=== PATIENT | female | born 1970 | race American Indian/Alaskan Native ===

== ENCOUNTER 2017-02-12 08:58 | Outpatient (CLI) | payer MEDICAID ==
--- NOTE | 2017-02-12 11:18 | Fluoroscopy Report ---
FLUORO GUIDED HSG INDICATION: Pelvic and perineal pain. ESSURE placed 10 years ago. COMPARISON: None similar. FINDINGS: Hysterosalpingogram performed with cervix cannulated using standard sterile precautions. Preliminary radiograph demonstrates bilateral Essure devices. Colonic stool, greatest in the right lower quadrant. Injection of 10 cc of Omnipaque-300 under fluoroscopy promptly opacifies the uterine cavity with approximately 2 cm filling defect centrally suspicious for a fibroid. No contrast within the fallopian tubes or free spillage into the peritoneal cavity. Bilateral Essure devices seen with the proximal tip in the cornu of the uterus on the right and at the junction of the cornu and the fallopian tube on the left. CONCLUSION: 1. Bilateral Essure devices without evidence of free intraperitoneal spillage, representing bilateral tubal occlusion, as described. Please correlate. 2. Few other findings, including possible uterine fibroid, as above. Thank you for the opportunity to participate in this patient's care.
== END 2017-02-12 08:59 | disposition home or self-care (01) ==
LOC: FLUORO 08:58
PROVIDERS: ATTEND Obstetrics & Gynecology
DX: R10.2 Pelvic and perineal pain (principal); Z98.51 Tubal ligation status; Z87.891 Personal history of nicotine dependence
CPT/HCPCS: 58340; 74740; Q9967

== ENCOUNTER 2017-05-28 10:45 | Inpatient (IN) | payer MEDICAID ==
[~2017-05-28 10:45] MED LIST: DIPRIVAN 10 MG/ML IV ONE; MARCAINE 0.5% INFILTRATI ONE; SUBLIMAZE ONE; XYLOCAINE MPF 2% ONE; ZEMURON IV ONE
--- NOTE | 2017-05-28 10:55 | Short Stay Summary ---
Short Stay Documentation Date of service: 05/28/17 Narrative H&P: Pt is a 46yo BF LMP 5 years ago spontaneously, presents for surgical removal of the Essure device which was placed 10 years ago. Pt complains of pelvic pain associated with the Essure device, and would like them removed. - History Principal diagnosis: Pelvic pain H&P: obtained from office Past Medical History: other (Neurotic /Anxiety/Depression disorder) Past Surgical History: Other (Ovarian cystectomy; Laparoscopy for ectopic ; Essure placement) Social history: no significant social history, - Allergies and Medications Current Medications: Allergies morphine Adverse Reaction (Verified 02/07/14 13:44) Itching Home Medications Medication Instructions Recorded Confirmed Last Taken Type Cyclobenzaprine [Flexeril 10 MG 10 mg PO TID PRN #20 tablet 05/01/15 Unknown Rx TAB] HYDROcodone/APAP 10-325 [[place] 1 each PO Q8HR PRN #20 tablet 05/01/15 Unknown Rx 10/325] Nitrofurantoin [place]/M-[place]ryst 100 mg PO Q12HR #10 capsule 05/01/15 Unknown Rx [Macrobid CAP] ALBUTEROL NEB's [Proventil] 2.5 mg IH PRN PRN 05/22/17 05/22/17 Unknown History Famotidine [Famotidine] 20 mg PO BID 05/22/17 05/22/17 Unknown History Ibuprofen [Motrin 800 MG tab] 800 mg PO PRN PRN 05/22/17 05/22/17 Unknown History PARoxetine [Paxil] 20 mg PO DAILY 05/22/17 05/22/17 Unknown History Trazodone HCl 150 mg PO DAILY 05/22/17 05/22/17 Unknown History Vit D3 & K/Berberine HCl/Hops 5,000 each PO 05/22/17 Unknown History [Ostera Tablet] cloNIDine [Catapres] 0.1 mg PO TID 05/22/17 05/22/17 Unknown History Active Medications Cefazolin Sodium (Ancef/Sterile Water 2 Gm/20 Ml) 2 gm in 20 mls @ 80 mls/hr IV PREOP NR PRN Reason: Protocol Lactated Ringer's (Lactated Ringers) 1,000 mls @ 125 mls/hr IV DIRECT VANESSA - Physical exam General appearance: no acute distress Integumentary: no rash HEENT: Atraumatic Lungs: Clear to auscultation Breasts: deferred Heart: Regular rate Gastrointestinal: normal Female Genitourinary: deferred Rectal Exam: deferred Extremities: No edema Neurological: Normal gait - Brief post op/procedure progress note Date of procedure: 05/28/17 Pre-op diagnosis: 1. Pelvic pain Post-op diagnosis: same (with Left ovarian cyst and pelvic adhesions) Procedure: 1. Laparoscopy 2. Hysteroscopy with removal of right Essure device. 3. Laparotomy 4. Left SalpingoOophorectomy 5. Lysis of pelvic adhesions Anesthesia: GETA Findings: An enlarged uterus with absent right fallopian tube and ovary. A large left ovarian cyst with suspicious flesh-like tissue that was sent for frozen section. Bowel adhesions to the left uterine sidewall and anterior abdominal wall. Hysteroscopy showed the Essure devices in the uterine cornu bilaterally, and an endometrial polyp. Surgeon: ALEXANDER FLORES Estimated blood loss: 50-100ml Pathology: list (Left fallopian tube and ovary; Essure device from right uterine cornu; Ovarian mass for frozen section) Specimen disposition: to lab Condition: stable - Hospital course Hospital course: Unremarkable. Pt tolerated the surgical procedure well, and by POD #2 she was tolerating a reg diet without nausea or vomiting, ambulating and voiding without difficulty. She was therefore discharged to home on POD #2 in stable condition. - Disposition Condition at discharge: Good Disposition: DC-01 TO HOME OR SELFCARE Short Stay Discharge Plan Activity: no restrictions Diet: regular Wound: open to air, keep clean and dry Follow up with: MILTON ALBERTS MD [Primary Care Provider] - 7 Days ALEXANDER FLORES MD [Staff Physician] - 7 Days Prescriptions: HYDROcodone/APAP 5-325 [[place] 5-325 mg TAB] 1 each PO Q6HR PRN #30 tablet PRN Reason: Pain, Moderate (4-6) Ibuprofen [Motrin] 800 mg PO Q8HR PRN #30 tablet PRN Reason: Moder Pain Unrelieved By [place]
[2017-05-28] MEDS ORDERED: ANCEF/STERILE WATER 2 GM/20 ML 2 GM/20 ML SYRINGE IV NR (11:00)
[2017-05-28] MEDS ORDERED: LACTATED RINGERS 1,000 ML IV SCH (11:00)
[2017-05-28] MEDS ORDERED: NACL BACTERIOSTATIC INFILTRATI ONE (11:35)
--- NOTE | 2017-05-28 12:18 | Anesthesia Consultation ---
Anesthesia Consult and Med Hx Date of service: 05/28/17 - Airway Anesthetic Teeth Evaluation: Good ROM Head & Neck: Adequate Mental/Hyoid Distance: Adequate Mallampati Class: Class II Intubation Access Assessment: Good - Pulmonary Exam CTA: Yes - Cardiac Exam Cardiac Exam: RRR - Pre-Operative Health Status ASA Pre-Surgery Classification: ASA3 Proposed Anesthetic Plan: General - Pulmonary Hx Smoking: Yes (QUIT 2013) Hx Asthma: Yes Hx Sleep Apnea: No - Cardiovascular System Hx Heart Murmur: Yes - Central Nervous System Hx Psychiatric Problems: Yes - Hematic Hx Anemia: Yes
--- NOTE | 2017-05-28 12:19 | Anesthesia Day of Surgery ---
Anesthesia Day of Surgery - Day of Surgery Patient Examined: Yes Patient H&P Reviewed: Yes Patient is NPO: Yes
[2017-05-28] MEDS ORDERED: MARCAINE 0.5% 30 ML INFILTRATI ONE (12:22)
[2017-05-28] MEDS ORDERED: VERSED IV NR (13:00)
[2017-05-28] MEDS ORDERED: PEPCID PO NR (13:00)
[2017-05-28] MEDS ORDERED: NEO SYNEPHRINE/NS Syringe(OR USE) IV ONE (14:30)
[2017-05-28] MEDS ORDERED: DILAUDID ONE ×2 (14:36→16:11)
[2017-05-28] MEDS ORDERED: ZOFRAN ONE (14:42)
[2017-05-28] MEDS ORDERED: DECADRON ONE (14:42)
[2017-05-28] MEDS ORDERED: NEOSTIGMINE ONE (15:18)
[2017-05-28] MEDS ORDERED: ROBINUL ONE (15:18)
[2017-05-28] MEDS ORDERED: LACTATED RINGERS 1,000 ML ONE ×2 (15:20)
[2017-05-28] MEDS: DILAUDID IV PRN ×3 (16:08→17:26)
[2017-05-28] MEDS ORDERED: TYLENOL PO PRN (16:09)
[2017-05-28] MEDS ORDERED: ZOFRAN IV PRN ×2 (16:09→16:13)
[2017-05-28] MEDS ORDERED: MILK OF MAGNESIA PO PRN (16:09)
[2017-05-28] MEDS ORDERED: TORADOL ONE (16:14)
[2017-05-28] MEDS ORDERED: DEMEROL IV PRN (16:19)
[2017-05-28] MEDS ORDERED: DEMEROL ONE (16:22)
[2017-05-28] MEDS ORDERED: BENADRYL IV PRN (16:31)
[2017-05-28] MEDS ORDERED: REGLAN IV PRN (16:31)
[2017-05-28] MEDS ORDERED: NARCAN 0.4 MG/1 ML IV PRN (16:31)
--- NOTE | 2017-05-28 16:31 | Operative Report ---
Operative Report Operative Report: Date of procedure: 05/28/2017 Pre-operative diagnosis: Pelvic pain Post-operative diagnosis: Same with left ovarian cyst 2. Pelvic adhesions Procedure name(s): 1. Diagnostic laparoscopy 2. Hysteroscopic removal of the Essure device 3. Exploratory laparotomy 4. Left salpingo-oophorectomy 5. Lysis of pelvic adhesions Surgeon: Jerzy Orta MD Machine Plug Shaper: None Anesthesia: Gen. endotracheal intubation by Dr. Guillen EBL: 50 mL's Findings: An enlarged uterus with absent right fallopian tube and ovary. A large left ovarian cyst with suspicious findings on the surface. Hysteroscopy showed the Essure device in the cornu of the uterus bilaterally, and a large endometrial polyp. Procedure: After the patient was correctly identified, she was prepped and draped in the usual sterile fashion and placed in the dorsolithotomy position. First the bladder was emptied using a straight catheter, and the speculum was placed in the vaginal vault and the anterior lip of the cervix was grasped using a single-tooth tenaculum. The uterine manipulator was then placed, and the tenaculum and speculum were removed. Attention was then turned to the abdomen where first a periumbilical incision was made using the skin knife, and the Optiview trocar was inserted under direct visualization. After an adequate amount of abdominal insufflation, visualization of the pelvic organs found the uterus to be enlarged, with absent right fallopian tube and ovary. The left adnexa was obscured by bowel adhesions to the anterior abdominal wall into the left uterine sidewall. Two right lateral incisions were made through which 5 mm trochars were placed in order to aid in management and manipulation of the pelvic organs. The bowel was retracted back, and visualization of the left ovarian cyst with a suspicious location serosa. The cyst was biopsied and sent to pathology for frozen section. The frozen section report came back as a borderline ovarian tumor. While waiting for the frozen section, the hysteroscopic procedure was performed , and the Essure device was removed from the right uterine cornu, and sent to pathology. The left Essure device was deeply embedded to the left fallopian tube. I then scrubbed out of the procedure to speak with the family members, to advise them that it was in the best interest of the patient to perform a laparotomy. Her sister agreed. I then returned to the operating room, and made a transverse skin incision down to the layer of the fascia using the knife. The fascia was incised in the midline and extended laterally using the Bovie cautery. The rectus muscles were dissected off the rectus fascia both superiorly and inferiorly, the rectus bellies midline and the peritoneum was entered under direct visualization. Exploration of the pelvic organs found the left ovarian mass which was excised completely and sent to pathology. The left fallopian tube was also removed in its entirety and sent to pathology. Copious amounts of irrigation was then performed, and after good hemostasis was achieved, the procedure was considered complete. The Tisseel sealant was sprayed over the left salpingectomy site, and excellent hemostasis was assured. All instruments were then removed from the abdomen, and the uterus was returned to his normal anatomical position. The peritoneum and rectus muscles were closed together using 0 Vicryl suture in a figure 8 configuration, then the fascia re- approximated using 0 Vicryl suture in a running interlocking fashion. The subcutaneous layer was made hemostatic using Bovie cautery, and the skin edges re-approximated using 4-0 Vicryl suture in a sub-cuticular fashion. The patient tolerated the procedure well and was transported to recovery room in stable condition.
[2017-05-28] MEDS ORDERED: NACL 0.9% 1000 ML 1,000 ML IV SCH (17:00)
[2017-05-28] MEDS ORDERED: DILAUDID PCA 6MG/30ML IV SCH (17:00)
[2017-05-28] MEDS ORDERED: D5LR 1,000 ML IV SCH (17:00)
--- NOTE | 2017-05-28 17:01 | Post Anesthesia Evaluation ---
- Post Anesthesia Evaluation Patient Participated: Yes Airway Patent: Yes Stable Respiratory Function: Yes Temp > 96.8F: Yes Pain Manageable: Yes Adequeate Hydration: Yes Anesthesia Complications: No Block Receding Appropriately: Not Applicable
[2017-05-28] MEDS: ANCEF/NS 1 GM/50 ML 1 GM/50 ML BAG IV SCH (20:29)
[2017-05-28] MEDS: TORADOL IV SCH (22:34)
[2017-05-28] MEDS: COLACE PO SCH (23:38)
[2017-05-29] MEDS: TORADOL IV SCH ×4 (03:32→22:34)
[2017-05-29] MEDS: ANCEF/NS 1 GM/50 ML 1 GM/50 ML BAG IV SCH (03:33)
[2017-05-29 04:56] LABS: Hematocrit 37.9 % (30.3-42.9); Hemoglobin 12.6 gm/dl (10.1-14.3)
--- NOTE | 2017-05-29 08:37 | Progress Note ---
Assessment and Plan - Patient Problems (1) Status post unilateral salpingo-oophorectomy Onset Date: 05/29/17 Current Visit: Yes Status: Resolved Plan to address problem: A: S/P Left SalpingoOophorectomy - POD #1 Doing well P: Continue RPOC Anticipate discharge in 24hrs Subjective - Subjective Date of service: 05/29/17 Principal diagnosis: s/p Left SalpingoOophorectomy - POD #1 Interval history: Pt is feeling well without complaints except for incisional pains. Tolerating liquids, but vomited earlier - now resolved. Patient reports: appetite normal, voiding normally, pain poorly controlled, ambulating normally, no flatus Objective - Vital Signs Latest vital signs: Vital Signs Temp Pulse Resp BP BP Pulse Ox 05/29/17 04:05 98.7 F 67 18 107/58 05/29/17 00:00 99.2 F 76 18 108/60 05/28/17 19:45 98.0 F 69 18 111/60 05/28/17 18:45 98.6 F 78 18 123/79 97 05/28/17 17:50 97.4 F L 76 14 113/63 97 05/28/17 17:30 77 14 121/66 98 05/28/17 17:15 79 14 116/67 98 05/28/17 17:00 78 14 117/64 100 05/28/17 16:45 99 F 67 14 114/68 100 05/28/17 16:30 79 14 135/72 100 05/28/17 16:15 69 14 139/81 100 05/28/17 16:10 68 14 136/79 100 05/28/17 16:05 66 16 142/80 100 05/28/17 16:00 78 16 138/84 100 05/28/17 15:55 96.8 F L 77 18 128/89 100 05/28/17 12:16 98.0 F 81 16 116/59 96 05/28/17 11:25 98.0 F 81 16 116/59 96 Intake and Output 05/28/17 05/29/17 05/29/17 22:59 06:59 14:59 Intake Total 990 360 Output Total 900 1300 Balance 90 -940 Intake: IV 750 ANCEF/NS 1 GM/50 ML 1 gm 50 In 50 ml @ 100 mls/hr IV Q8H VANESSA Rx#:[id number] Oral 240 360 Output: Urine 900 1300 Indwelling Catheter 600 1300 Uretheral ([place]) 150 Other: Total, Intake Amount 240 120 Total, Output Amount 600 1000 Voiding Method Indwelling Catheter Weight 108.862 kg - Exam Breasts: Present: deferred Cardiovascular: Present: Regular rate Lungs: Present: Clear to auscultation Abdomen: Present: normal appearance, soft Uterus: Present: normal Extremities: Present: normal Incision: Present: normal, dry, intact, dressed - Labs Labs: Laboratory Tests 05/29/17 04:11 Hgb 12.6 Hct 37.9
[2017-05-29] MEDS: COLACE PO SCH ×2 (10:55→22:34)
[2017-05-29] MEDS: PERCOCET 5/325 PO PRN ×2 (13:24→18:24)
[2017-05-29 19:05] LABS: ISTAT K 3.9 (3.5-4.9)
[2017-05-30] MEDS: PERCOCET 5/325 PO PRN ×4 (01:36→22:20)
[2017-05-30] MEDS: TORADOL IV SCH (05:17)
--- NOTE | 2017-05-30 07:02 | Progress Note ---
Assessment and Plan - Patient Problems (1) Status post unilateral salpingo-oophorectomy Onset Date: 05/29/17 Current Visit: Yes Status: Resolved Plan to address problem: A: S/P Left SalpingoOophorectomy - POD #2 Doing well P: Will give a breathing treatment today Probable discharge to home this afternoon Subjective - Subjective Date of service: 05/30/17 Principal diagnosis: s/p Left SalpingoOophorectomy - POD #2 Interval history: Pt is feeling well, but complains of SOB. She usually uses an inhaler at home. She is tolerating a reg diet without nausea or vomiting, ambulating and voiding without difficulty. Patient reports: appetite normal, voiding normally, pain well controlled, flatus , ambulating normally Objective - Vital Signs Latest vital signs: Vital Signs Temp Pulse Resp BP BP 05/30/17 04:25 97.9 F 80 94/56 05/30/17 00:35 98.5 F 75 105/63 05/29/17 20:15 98.5 F 83 95/62 05/29/17 18:00 91 H 102/55 05/29/17 16:42 98.7 F 76 20 91/52 90/56 05/29/17 12:16 98.4 F 76 20 98/68 05/29/17 08:26 98.9 F 62 18 90/62 Intake and Output 05/29/17 05/30/17 05/30/17 22:59 06:59 14:59 Intake Total 480 480 Balance 480 480 Intake: Oral 480 480 Other: Total, Intake Amount 240 240 Voiding Method Toilet # Voids 1 Void 1 1 - Exam Breasts: Present: deferred Cardiovascular: Present: Regular rate Lungs: Present: Clear to auscultation, Normal air movement Abdomen: Present: normal appearance, soft Extremities: Present: normal Incision: Present: normal, dry, intact, dressed - Labs Labs: Abnormal lab results 05/28/17 Range/Units 14:24 POC Hct 37 L (38-51) POC Glucose 110 H (70-105)
[2017-05-30] MEDS ORDERED: PROVENTIL IH PRN (08:00)
[2017-05-30] MEDS: COLACE PO SCH ×2 (11:13→22:20)
[2017-05-30 14:36] LABS: Creatine Kinase MB 1.1 ng/mL (0.0-4.0)
--- NOTE | 2017-05-30 15:44 | Event Note ---
Date: 05/30/17 Called and informed patient has chest pain. EKG obtained shows borderline left axis deviation with abnormal RR progression, T wave abnormalities. Enzymes obtained so far shows elevated total CK normal troponin. She continues to complain of chest pain but appears to be reproducible. We'll consult internal medicine at this time.
[2017-05-30] MEDS ORDERED: SODIUM CHLORIDE FLUSH SYRINGE 10 ML IV PRN (15:47)
--- NOTE | 2017-05-30 15:47 | History and Physical Report ---
History of Present Illness Date of admission: 05/28/17 16:09 Chief complaint: I feel okay History of present illness: 46 YO Female with Anxiety, Depression, Obesity admitted for pelvic pain and underwent OB procedure and found to have postoperative EKG chances. Pt seen and evaluated. Pt denies fever, chills, CP, Palpitations, NVD, difficulty breathing , leg swelling, calf pain, individual/family history of DVT/PE. Past History Past Medical History: other (Neurotic /Anxiety/Depression disorder) Past Surgical History: Other (Ovarian cystectomy; Laparoscopy for ectopic ; Essure placement) Social history: no significant social history, Family history: hypertension Medications and Allergies Allergies Allergy/AdvReac Type Severity Reaction Status Date / Time morphine Allergy Itching Verified 05/28/17 16:42 Home Medications Medication Instructions Recorded Confirmed Last Taken Type Famotidine [Famotidine] 20 mg PO BID 05/22/17 05/28/17 05/26/17 History Ibuprofen [Motrin 800 MG tab] 800 mg PO PRN PRN 05/22/17 05/22/17 Unknown History PARoxetine [Paxil] 20 mg PO DAILY 05/22/17 05/28/17 05/27/17 History Trazodone HCl 150 mg PO DAILY 05/22/17 05/28/17 05/27/17 History Vit D3 & K/Berberine HCl/Hops 5,000 each PO QDAY 05/22/17 05/28/17 05/26/17 History [Ostera Tablet] ALBUTEROL NEB's [Proventil] 2.5 mg IH QDAY PRN 05/28/17 05/28/17 Unknown History clonazePAM [Klonopin] 1 mg PO TID 05/28/17 05/28/17 05/27/17 History HYDROcodone/APAP 5-325 [[place] 1 each PO Q6HR PRN #30 tablet 05/30/17 Unknown Rx 5-325 mg TAB] Ibuprofen [Motrin] 800 mg PO Q8HR PRN #30 tablet 05/30/17 Unknown Rx Active Meds: Active Medications Acetaminophen (Tylenol) 650 mg PO Q4H PRN PRN Reason: Pain, Mild (1-3) Last Admin: 05/29/17 02:37 Dose: 650 mg Acetaminophen/Hydrocodone Bitart ([place] 5/325) 2 each PO Q4H PRN PRN Reason: Pain, Moderate (4-6) Albuterol (Proventil) 2.5 mg IH Q4HRT PRN PRN Reason: Shortness Of Breath Last Admin: 05/30/17 08:00 Dose: 2.5 mg Diphenhydramine HCl (Benadryl) 25 mg IV Q4H PRN PRN Reason: Itching Docusate Sodium (Colace) 100 mg PO BID VANESSA Last Admin: 05/30/17 11:13 Dose: 100 mg Hydromorphone HCl (Dilaudid) 0.5 mg IV Q10MIN PRN PRN Reason: Pain , Severe (7-10) Stop: 05/31/17 16:14 Last Admin: 05/28/17 17:26 Dose: 0.5 mg Hydromorphone/Sodium Chloride (Dilaudid Emb[employer]ider[employer] Designer 6mg/30ml) 0 mg IV DIRECT VANESSA PRN Reason: Protocol Last Admin: 05/28/17 18:09 Dose: 1 cartstart Dextrose/Lactated Ringer's (D5lr) 1,000 mls @ 125 mls/hr IV DIRECT VANESSA Last Admin: 05/29/17 02:33 Dose: 125 mls/hr Sodium Chloride (Nacl 0.9% 1000 Ml) 1,000 mls @ 42 mls/hr IV DIRECT VANESSA Magnesium Hydroxide (Milk Of Magnesia) 30 ml PO Q4H PRN PRN Reason: Constipation Last Admin: 05/30/17 05:17 Dose: 30 ml Meperidine HCl (Demerol) 25 mg IV ONCE PRN PRN Reason: Shivering Last Admin: 05/28/17 16:20 Dose: 25 mg Metoclopramide HCl (Reglan) 10 mg IV Q6H PRN PRN Reason: N/V if NPO. Naloxone HCl (Narcan 0.4 Mg/1 Ml) 0.1 mg IV Q2MIN PRN PRN Reason: Res Rate </= 8 or 02 SAT < 92% Ondansetron HCl (Zofran) 4 mg IV Q8H PRN PRN Reason: Nausea And Vomiting Oxycodone/Acetaminophen (Percocet 5/325) 2 tab PO Q6H PRN PRN Reason: Pain, Moderate (4-6) Last Admin: 05/30/17 15:07 Dose: 2 tab Review of Systems Constitutional: no weight loss, no weight gain, no fever, no chills Ears, nose, mouth and throat: no ear pain, no ear discharge, no tinnitis, no decreased hearing, no nose pain, no nasal congestion Breasts: no change in shape, no swelling, no mass Cardiovascular: no chest pain, no orthopnea, no palpitations, no rapid/ irregular heart beat, no edema, no syncope Respiratory: no cough, no cough with sputum, no excessive sputum, no hemoptysis Gastrointestinal: no abdominal pain, no nausea, no vomiting, no diarrhea, no constipation, no change in bowel habits Genitourinary Female: no dyspareunia, no dysmenorrhea, no pelvic pain Rectal: no pain, no incontinence, no bleeding Musculoskeletal: no neck stiffness, no neck pain, no shooting arm pain, no arm numbness/tingling, no low back pain Integumentary: no rash, no pruritis, no redness, no sores, no wounds Neurological: no head injury, no transient paralysis, no paralysis, no weakness , no parathesias, no numbness Psychiatric: anxiety, no memory loss, no change in sleep habits, no sleep disturbances, no insomnia, no hypersomnia Endocrine: no cold intolerance, no heat intolerance, no polyphagia, no excessive thirst Hematologic/Lymphatic: no easy bruising, no easy bleeding Allergic/Immunologic: no urticaria, no allergic rhinitis, no wheezing Exam - Constitutional Vitals: Temp Pulse Resp BP Pulse Ox 98.4 F 84 18 109/68 96 05/30/17 07:10 05/30/17 12:02 05/30/17 12:02 05/30/17 12:02 05/30/17 12:02 General appearance: Present: no acute distress, well-nourished - EENT Eyes: Present: PERRL ENT: hearing intact, clear oral mucosa - Neck Neck: Present: supple, normal ROM - Respiratory Respiratory effort: normal Respiratory: bilateral: CTA - Cardiovascular Heart Sounds: Present: S1 & S2. Absent: rub, click - Extremities Extremities: pulses symmetrical, No edema Peripheral Pulses: within normal limits - Abdominal General gastrointestinal: Present: soft, non-tender, non-distended, normal bowel sounds Female genitourinary: Present: normal - Integumentary Integumentary: Present: clear, warm, dry - Musculoskeletal Musculoskeletal: gait normal, strength equal bilaterally - Psychiatric Psychiatric: appropriate mood/affect, intact judgment & insight - Neurologic Neurologic: CNII-XII intact, moves all extremities Results - Labs CBC & Chem 7: 05/30/17 16:06 05/30/17 16:06 Labs: Abnormal lab results 05/28/17 05/30/17 Range/Units 14:24 13:44 POC Hct 37 L (38-51) POC Glucose 110 H (70-105) Total Creatine Kinase 512 H (30-135) units/L Assessment and Plan - Patient Problems (1) Acute electrocardiogram changes Current Visit: Yes Status: Acute Plan to address problem: Serial cardiac enzymes, ekg, Echo, supportive care, D dimer. May D/C in am if echo and d dimer normal. Repeat EKG reviewed and no evidence of acute ischemia or Right ventricular strain. (2) Anxiety Current Visit: Yes Status: Acute Plan to address problem: continue current therapy (3) Depression Current Visit: Yes Status: Acute Qualifiers: Depression Type: D Major depression recurrence: M Active/Remission status : A Major depression episode severity: M Psychotic features: P Trimester: T Plan to address problem: resume current therapy
[2017-05-30 16:21] LABS: Basophils % (Auto) 0.3 % (0.0-1.8); Eosinophils % (Auto) 2.1 % (0.0-4.3); Hemoglobin 11.2 gm/dl (10.1-14.3); Mean Corpuscular HGB Conc 32 % (30-34); Mean Corpuscular Hemoglobin 27 pg (28-32); Mean Corpuscular Volume 84 fl (79-97); Platelet Count 183 K/mm3 (140-440); Red Blood Count 4.15 M/mm3 (3.65-5.03); Red Cell Distribution Width 14.3 % (13.2-15.2); White Blood Count 8.7 K/mm3 (4.5-11.0)
[2017-05-30 16:34] LABS: Anion Gap 14 mmol/L; BUN/Creatinine Ratio 11.25; Blood Urea Nitrogen 9 mg/dL (7-17); Carbon Dioxide 28 mmol/L (22-30); Chloride 100.5 mmol/L (98-107); Glucose 108 mg/dL (65-100); Potassium 3.8 mmol/L (3.6-5.0); Sodium 139 mmol/L (137-145)
[2017-05-30 16:53] LABS: Cholesterol 194 mg/dL (50-199); HDL Cholesterol 45 mg/dL (40-59); LDL Cholesterol,Direct 102 mg/dL (50-130); Triglycerides 235 mg/dL (2-149)
[2017-05-30] MEDS: NORCO 5/325 PO PRN (19:38)
[2017-05-31] MEDS: PERCOCET 5/325 PO PRN (05:32)
[2017-05-31] MEDS ORDERED: NACL ONE (09:25)
[2017-05-31] MEDS ORDERED: PROTONIX PO SCH (10:00)
--- NOTE | 2017-05-31 10:26 | Cat Scan Report ---
CTA CHEST: History: Chest pain. Technique: Helical CT following IV contrast. Pulmonary embolus protocol. Sagittal and coronal reformatted images. Rotational MIP images. Findings: Contrast bolus is satisfactory. No pulmonary embolus is identified. The thyroid gland, tracheobronchial tree, esophagus, heart, pericardium, mediastinal vessels, lung shukla and bony thorax are unremarkable. Minor linear atelectasis is noted in both lower lobes. Impression: No evidence for pulmonary embolus. Minor linear atelectasis in both lower lobes. No acute cardiopulmonary process identified.
[2017-05-31] MEDS: NORCO 5/325 PO PRN (10:44)
[2017-05-31] MEDS: COLACE PO SCH (10:44)
--- NOTE | 2017-05-31 11:10 | Progress Note ---
Assessment and Plan A: S/P Left SalpingoOophorectomy - POD #3 Doing well P: -Internal medicine consult reviewed, thanks -Will discharge home once cleared -Continue present care - Patient Problems (1) Status post unilateral salpingo-oophorectomy Onset Date: 05/29/17 Current Visit: Yes Status: Resolved Subjective - Subjective Date of service: 05/31/17 Principal diagnosis: POD# 3 Interval history: Patient seen and examined, stable doing well. Adequate bowel bladder function ambulating without difficulty pain well controlled. Chest pain being worked up by internal medicine, aminata Patient reports: appetite normal, voiding normally, pain well controlled, flatus , ambulating normally, no dizzy ambulation, no nauseated Objective - Vital Signs Latest vital signs: Vital Signs Temp Pulse Resp BP Pulse Ox 05/31/17 09:00 98 F 79 20 111/63 05/31/17 04:57 98.8 F 90 18 110/80 05/31/17 00:30 98.8 F 76 18 99/59 05/30/17 20:25 98.9 F 83 20 109/69 05/30/17 16:55 97.7 F 76 18 102/73 05/30/17 12:02 84 18 109/68 96 Intake and Output 05/30/17 05/31/17 05/31/17 22:59 06:59 14:59 Intake Total 800 240 0 Balance 800 240 0 Intake: Oral 320 0 Intake, Free Water 480 240 Other: Total, Intake Amount 320 0 # Voids Void 3 2 - Labs Labs: Abnormal lab results 05/30/17 05/30/17 05/30/17 Range/Units 13:44 16:06 16:06 MCH 27 L (28-32) pg Lymph % (Auto) 45.5 H (13.4-35.0) % [place] % (Auto) 10.3 H (0.0-7.3) % [place] # 0.9 H (0.0-0.8) K/mm3 D-Dimer (0-234) ng/mlDDU Glucose 108 H (65-100) mg/dL Total Creatine Kinase 512 H (30-135) units/L Triglycerides 235 H (2-149) mg/dL 05/30/17 Range/Units 21:10 MCH (28-32) pg Lymph % (Auto) (13.4-35.0) % [place] % (Auto) (0.0-7.3) % [place] # (0.0-0.8) K/mm3 D-Dimer 654.38 H (0-234) ng/mlDDU Glucose (65-100) mg/dL Total Creatine Kinase (30-135) units/L Triglycerides (2-149) mg/dL
--- NOTE | 2017-05-31 11:15 | Progress Note ---
Assessment and Plan Assessment and plan: Hospitalist/internal medicine technical solutions consultant for chest pain Patient's 46-year-old woman history of anxiety, depression and obesity who was admitted by [facility] [employer] [employer] for the following: "Date of procedure: 05/28/2017 Pre-operative diagnosis: Pelvic pain Post-operative diagnosis: Same with left ovarian cyst 2. Pelvic adhesions Procedure name(s): 1. Diagnostic laparoscopy 2. Hysteroscopic removal of the Essure device 3. Exploratory laparotomy 4. Left salpingo-oophorectomy 5. Lysis of pelvic adhesions Surgeon: Jerzy Orta MD Voice Systems Engineer: None Anesthesia: Gen. endotracheal intubation by Dr. Guillen" Hospitalist were consulted for abnormal EKG and chest pain. D-dimer was elevated; therefore, she underwent a CTA of the chest which ruled out PE but revealed atelectasis -Chest pain most likely due to atelectasis -Abnormal EKG without any baseline, no acute coronary syndrome: May be discharged from internal medicine standpoint if 2-D echocardiogram is unremarkable discussed with Dr. ruvalcaba History Interval history: Patient was seen and examined. Follow-up on current diagnosis/chest pain shortness of breath which is all resolved. Overnight uneventful. Patient denies any chest pain, shortness breath, nausea/vomiting or severe headaches. Imaging, nursing note, chart, labs and old chart reviewed. Discussed with patient. Hospitalist Physical - Physical exam Narrative exam: GEN: WDWN, NAD, AWAKE, ALERT, ORIENTATED 3 BMI 33.5 HEENT: NCAT, EOMI, PERRL, OP Clear NECK: supple, no adenopathy, no thyromegaly, no JVD CVS/HEART: RRR, NORMAL S1S2, NO JVD, pulses present bilaterally CHEST/LUNGS: Symmetrical chest expansion, good air entry bilaterally GI/Abdomen: soft, diffuse tenderness with good bowel sounds, no guarding or rebound /Bladder: no suprapubic tenderness, no CVA or paraspinal tenderness EXT/Skin: no c/c/e, no significant edema or obvious rash MSK: FROM x 4 Neuro: CN 2-12 grossly intact, no new focal deficits Psych: calm - Constitutional Vitals: Temp Pulse Resp BP Pulse Ox 98 F 79 20 111/63 96 05/31/17 09:00 05/31/17 09:00 05/31/17 09:00 05/31/17 09:00 05/30/17 12:02 General appearance: Present: no acute distress, well-nourished Results - Labs CBC & Chem 7: 05/30/17 16:06 05/30/17 16:06 Labs: Laboratory Last Values WBC 8.7 K/mm3 (4.5-11.0) 05/30/17 16:06 RBC 4.15 M/mm3 (3.65-5.03) 05/30/17 16:06 Hgb 11.2 gm/dl (10.1-14.3) 05/30/17 16:06 POC Hgb 12.6 (12-17) 05/28/17 14:24 Hct 35.0 % (30.3-42.9) 05/30/17 16:06 POC Hct 37 (38-51) L 05/28/17 14:24 MCV 84 fl (79-97) 05/30/17 16:06 MCH 27 pg (28-32) L 05/30/17 16:06 MCHC 32 % (30-34) 05/30/17 16:06 RDW 14.3 % (13.2-15.2) 05/30/17 16:06 Plt Count 183 K/mm3 (140-440) 05/30/17 16:06 Lymph % (Auto) 45.5 % (13.4-35.0) H 05/30/17 16:06 [place] % (Auto) 10.3 % (0.0-7.3) H 05/30/17 16:06 Eos % (Auto) 2.1 % (0.0-4.3) 05/30/17 16:06 Baso % (Auto) 0.3 % (0.0-1.8) 05/30/17 16:06 Lymph # 4.0 K/mm3 (1.2-5.4) 05/30/17 16:06 [place] # 0.9 K/mm3 (0.0-0.8) H 05/30/17 16:06 Eos # 0.2 K/mm3 (0.0-0.4) 05/30/17 16:06 Baso # 0.0 K/mm3 (0.0-0.1) 05/30/17 16:06 Seg Neutrophils % 41.8 % (40.0-70.0) 05/30/17 16:06 Seg Neutrophils # 3.6 K/mm3 (1.8-7.7) 05/30/17 16:06 D-Dimer 654.38 ng/mlDDU (0-234) H 05/30/17 21:10 POC Sodium 141 mmol/L (138-146) 05/28/17 14:24 POC Potassium 3.9 (3.5-4.9) 05/28/17 14:24 POC Chloride 105 (98-109) 05/28/17 14:24 Sodium 139 mmol/L (137-145) 05/30/17 16:06 Potassium 3.8 mmol/L (3.6-5.0) 05/30/17 16:06 Chloride 100.5 mmol/L (98-107) 05/30/17 16:06 Carbon Dioxide 28 mmol/L (22-30) 05/30/17 16:06 Anion Gap 14 mmol/L 05/30/17 16:06 POC BUN 10 mg/dl (8-26) 05/28/17 14:24 BUN 9 mg/dL (7-17) 05/30/17 16:06 Creatinine 0.8 mg/dL (0.7-1.2) 05/30/17 16:06 Estimated GFR > 60 ml/min 05/30/17 16:06 BUN/Creatinine Ratio 11.25 % 05/30/17 16:06 Glucose 108 mg/dL (65-100) H 05/30/17 16:06 POC Glucose 110 (70-105) H 05/28/17 14:24 Calcium 9.0 mg/dL (8.4-10.2) 05/30/17 16:06 Total Creatine Kinase 512 units/L (30-135) H 05/30/17 13:44 CK-MB (CK-2) 1.1 ng/mL (0.0-4.0) 05/30/17 13:44 CK-MB (CK-2) Rel Index 0.2 (0-4) 05/30/17 13:44 Troponin T < 0.010 ng/mL (0.00-0.029) 05/30/17 23:08 Triglycerides 235 mg/dL (2-149) H 05/30/17 16:06 Cholesterol 194 mg/dL (50-199) 05/30/17 16:06 LDL Cholesterol Direct 102 mg/dL (50-130) 05/30/17 16:06 HDL Cholesterol 45 mg/dL (40-59) 05/30/17 16:06 Cholesterol/HDL Ratio 4.31 % 05/30/17 16:06
[2017-05-31 13:57] VITALS: BP 111/70
--- NOTE | 2017-05-31 15:26 | Event Note ---
Date: 05/31/17 Patient unable to complete 2-D echo. She has however been cleared by the hospitalist service for discharge home
--- NOTE | 2017-05-31 15:26 | Discharge Summary ---
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 Pt complains of pelvic pain associated with the Essure device, and would like them removed. "Date of procedure: 05/28/2017 Post-operative diagnosis: Same with left ovarian cyst 2. Pelvic adhesions Procedure name(s): 1. Diagnostic laparoscopy 2. Hysteroscopic removal of the Essure device 3. Exploratory laparotomy 4. Left salpingo-oophorectomy 5. Lysis of pelvic adhesions Surgeon: Jerzy Orta MD Stocking [employer] Box Shop Supervisor: None Anesthesia: Gen. endotracheal intubation by Dr. Guillen" Postop course complicated by chest pain and abnormal EKG for which the Hospitalist were consulted. D-dimer was elevated; therefore, she underwent a CTA of the chest which ruled out PE but revealed atelectasis -Chest pain most likely due to atelectasis -Abnormal EKG without any baseline, no acute coronary syndrome: May be discharged from internal medicine standpoint if 2-D echocardiogram is unremarkable. -Patient however could not tolerate 2-D echo and this was canceled. -She has been cleared by the hospitalist service for discharge but advised to follow up with [facility] in 1-2 weeks Condition at discharge: Good Disposition: DC-01 TO HOME OR SELFCARE - Discharge Diagnoses (1) Status post unilateral salpingo-oophorectomy Status: Resolved (2) Chest pain Status: Acute Qualifiers: Chest pain type: C Ischemic chest pain type: I Plan - Discharge Medications Prescriptions: HYDROcodone/APAP 5-325 [[place] 5-325 mg TAB] 1 each PO Q6HR PRN #30 tablet PRN Reason: Pain, Moderate (4-6) Ibuprofen [Motrin] 800 mg PO Q8HR PRN #30 tablet PRN Reason: Moder Pain Unrelieved By [place] - Provider Discharge Summary Activity: no heavy lifting 4 weeks, no strenuous exercise Diet: routine Additional instructions: [] Smoking cessation referral if applicable(refer to patient education folder for contact #) [] Refer to [facility] Booklet Call your doctor immediately for: * Fever > 100.5 * Heavy vaginal bleeding ( >1 pad per hour) * Severe persistent headache * Shortness of breath * Reddened, hot, painful area to leg or breast * Drainage or odor from incision. * Keep incision clean and dry at all times and follow doctor's instructions regarding bathing/showering - Follow up plan Follow up: MILTON ALBERTS MD [Primary Care Provider] - 7 Days JERZY ORTA MD [Staff Physician] - 7 Days Forms: [facility] Discharge Summary
== END 2017-05-31 15:40 | disposition home or self-care (01) | DRG 742 ==
LOC: OR 10:45 → OB 16:09
PROVIDERS: ADMIT Obstetrics & Gynecology; ATTEND Obstetrics & Gynecology
PROC: 0WJJ4ZZ Inspection of Pelvic Cavity, Percutaneous Endoscopic Approach (ICD-10-PCS; principal; 2017-05-28)
PROC: 0UT64ZZ Resection of Left Fallopian Tube, Percutaneous Endoscopic Approach (ICD-10-PCS; 2017-05-28)
PROC: 0JNC3ZZ Release Pelvic Region Subcutaneous Tissue and Fascia, Percutaneous Approach (ICD-10-PCS; 2017-05-28)
PROC: 0UT14ZZ Resection of Left Ovary, Percutaneous Endoscopic Approach (ICD-10-PCS; 2017-05-28)
PROC: 0UPD8HZ Removal of Contraceptive Device from Uterus and Cervix, Via Natural or Artificial Opening Endoscopic (ICD-10-PCS; 2017-05-28)
DX: N83.202 Unspecified ovarian cyst, left side (principal); J98.11 Atelectasis; N73.6 Female pelvic peritoneal adhesions (postinfective); F41.9 Anxiety disorder, unspecified; F32.9 Major depressive disorder, single episode, unspecified; Z88.5 Allergy status to narcotic agent; Z87.891 Personal history of nicotine dependence; E66.9 Obesity, unspecified; Z68.33 Body mass index [BMI] 33.0-33.9, adult; N84.0 Polyp of corpus uteri
CPT/HCPCS: 36415; 71275; 80048; 80061; 81025; 82550; 82553; 82803; 84484; 85014; 85018; 85025; 85379; 88300; 88302; 88305; 88307; 88331; 93005; 93010; 93306; 94640; C9250; J0690; J1100; J1170; J1885; J2175; J2250; J2370; J2405; J2704; J2710; J3010; J7120; J7121; Q9967

== ENCOUNTER 2017-07-27 14:29 | Emergency (ER) | payer MEDICAID ==
[2017-07-27 14:50] VITALS: BP 115/77
[2017-07-27] MEDS ORDERED: SUBLIMAZE IV ONE (15:49)
[2017-07-27 15:51] LABS: Bacteria,Urine 1+ /HPF (Negative); Bilirubin,Urine NEG (Negative); Blood,Urine MOD (Negative); Ketones,Urine TR mg/dL (Negative); Leukocyte Esterase,Urine TR (Negative); Mucus,Urine FEW /HPF; Nitrite,Urine NEG (Negative); Urobilinogen,Urine < 2.0 mg/dL (<2.0)
[2017-07-27 16:19] LABS: Basophils % (Auto) 0.2 % (0.0-1.8); Eosinophils % (Auto) 0.8 % (0.0-4.3); Hematocrit 40.9 % (30.3-42.9); Hemoglobin 13.2 gm/dl (10.1-14.3); Mean Corpuscular HGB Conc 32 % (30-34); Mean Corpuscular Hemoglobin 27 pg (28-32); Mean Corpuscular Volume 84 fl (79-97); Platelet Count 217 K/mm3 (140-440); Red Blood Count 4.87 M/mm3 (3.65-5.03); Red Cell Distribution Width 14.8 % (13.2-15.2); White Blood Count 12.2 K/mm3 (4.5-11.0)
[2017-07-27 16:30] LABS: Alanine Aminotransferase 33 units/L (7-56); Albumin 4.5 g/dL (3.9-5); Albumin/Globulin Ratio 1.3 %; Alkaline Phosphatase 86 units/L (35-129); Anion Gap 18 mmol/L; BUN/Creatinine Ratio 14; Blood Urea Nitrogen 10 mg/dL (7-17); Calcium 9.5 mg/dL (8.4-10.2); Carbon Dioxide 26 mmol/L (22-30); Chloride 101.6 mmol/L (98-107); Glucose 80 mg/dL (65-100); Potassium 3.8 mmol/L (3.6-5.0); Sodium 142 mmol/L (137-145); Total Protein 7.9 g/dL (6.3-8.2)
[2017-07-27] MEDS ORDERED: NACL 0.9% 1000 ML 1,000 ML IV ONE (17:21)
--- NOTE | 2017-07-27 18:17 | Emergency Department Report ---
ED General Adult HPI - General Chief complaint: Pain General Stated complaint: AMS Time Seen by Provider: 07/27/17 15:48 Source: patient, EMS Mode of arrival: Stretcher Limitations: No Limitations - History of Present Illness Initial comments: She is a 46-year-old female past medical history of ovarian cancer who presents with generalized body pain and lightheadedness. Since states that she had generalized body pain has been going on for the last couple of days. Patient states that her body pain as an achy type pain it is a 4 out of 10 restricted better mother really makes it worse she states that while she was walking she felt lightheaded and decided come the emergency Department. Patient is not short of breath she recently had surgery on her abdomen for ovarian cancer she has not received any chemo or radiation therapy yet. Severity scale (0 -10): 4 - Related Data Home Medications Medication Instructions Recorded Confirmed Last Taken Famotidine [Famotidine] 20 mg PO BID 05/22/17 05/28/17 05/26/17 Ibuprofen [Motrin 800 MG tab] 800 mg PO PRN PRN 05/22/17 05/22/17 Unknown PARoxetine [Paxil] 20 mg PO DAILY 05/22/17 05/28/17 05/27/17 Trazodone HCl 150 mg PO DAILY 05/22/17 05/28/17 05/27/17 Vit D3-Vit K/Berberine/Hops 5,000 each PO QDAY 05/22/17 05/28/17 05/26/17 [Ostera Tablet] ALBUTEROL NEB's [Proventil] 2.5 mg IH QDAY PRN 05/28/17 05/28/17 Unknown clonazePAM [Klonopin] 1 mg PO TID 05/28/17 05/28/17 05/27/17 Previous Rx's Medication Instructions Recorded Last Taken Type HYDROcodone/APAP 5-325 [[place] 1 each PO Q6HR PRN #30 tablet 05/30/17 Unknown Rx 5-325 mg TAB] Ibuprofen [Motrin] 800 mg PO Q8HR PRN #30 tablet 05/30/17 Unknown Rx Allergies Allergy/AdvReac Type Severity Reaction Status Date / Time morphine Allergy Itching Verified 05/28/17 16:42 ED Review of Systems ROS: Stated complaint: AMS Other details as noted in HPI Constitutional: denies: chills, fever Eyes: denies: eye pain, eye discharge, vision change ENT: denies: ear pain, throat pain Respiratory: denies: cough, shortness of breath, wheezing Cardiovascular: denies: chest pain, palpitations Endocrine: no symptoms reported Gastrointestinal: denies: abdominal pain, nausea, diarrhea Genitourinary: denies: urgency, dysuria, discharge Musculoskeletal: denies: back pain, joint swelling, arthralgia Skin: denies: rash, lesions Neurological: denies: headache, weakness, paresthesias Psychiatric: denies: anxiety, depression Hematological/Lymphatic: denies: easy bleeding, easy bruising ED Past Medical Hx - Past Medical History Hx Diabetes: Yes (BORDERLINE) Hx GERD: Yes Hx of Cancer: Yes (ovarian) Hx Arthritis: Yes Hx Asthma: Yes Additional medical history: anemia. anxiety. high cholestrol. bipoplar - Surgical History Hx Open Heart Surgery: No Additional Surgical History: ovarian cyst. ectopic. oophrectomy - Social History Smoking Status: Never Smoker Substance Use Type: None - Medications Home Medications: Home Medications Medication Instructions Recorded Confirmed Last Taken Type Famotidine [Famotidine] 20 mg PO BID 05/22/17 05/28/17 05/26/17 History Ibuprofen [Motrin 800 MG tab] 800 mg PO PRN PRN 05/22/17 05/22/17 Unknown History PARoxetine [Paxil] 20 mg PO DAILY 05/22/17 05/28/17 05/27/17 History Trazodone HCl 150 mg PO DAILY 05/22/17 05/28/17 05/27/17 History Vit D3-Vit K/[place]/Hops 5,000 each PO QDAY 05/22/17 05/28/17 05/26/17 History [Ostera Tablet] ALBUTEROL NEB's [Proventil] 2.5 mg IH QDAY PRN 05/28/17 05/28/17 Unknown History clonazePAM [Klonopin] 1 mg PO TID 05/28/17 05/28/17 05/27/17 History HYDROcodone/APAP 5-325 [[place] 1 each PO Q6HR PRN #30 tablet 05/30/17 Unknown Rx 5-325 mg TAB] Ibuprofen [Motrin] 800 mg PO Q8HR PRN #30 tablet 05/30/17 Unknown Rx ED Physical Exam - General Limitations: No Limitations General appearance: alert, in no apparent distress - Head Head exam: Present: atraumatic, normocephalic - Eye Eye exam: Present: normal appearance - ENT ENT exam: Present: mucous membranes moist - Neck Neck exam: Present: normal inspection - Respiratory Respiratory exam: Present: normal lung sounds bilaterally. Absent: respiratory distress - Cardiovascular Cardiovascular Exam: Present: regular rate, normal rhythm. Absent: systolic murmur, diastolic murmur, rubs, gallop - GI/Abdominal GI/Abdominal exam: Present: soft, normal bowel sounds - Extremities Exam Extremities exam: Present: normal inspection - Back Exam Back exam: Present: normal inspection - Neurological Exam Neurological exam: Present: alert, oriented X3 - Psychiatric Psychiatric exam: Present: normal affect, normal mood - Skin Skin exam: Present: warm, dry, intact, normal color. Absent: rash ED Course Vital Signs 07/27/17 07/27/17 07/27/17 14:45 15:31 16:10 Temperature 98.7 F Pulse Rate 82 Respiratory 20 18 18 Rate Blood Pressure 115/77 O2 Sat by Pulse 97 99 Oximetry ED Medical Decision Making - Lab Data Result diagrams: 07/27/17 15:56 07/27/17 15:56 Lab Results 07/27/17 07/27/17 07/27/17 Range/Units 15:07 15:56 15:56 WBC 12.2 H (4.5-11.0) K/mm3 RBC 4.87 (3.65-5.03) M/mm3 Hgb 13.2 (10.1-14.3) gm/dl Hct 40.9 (30.3-42.9) % MCV 84 (79-97) fl MCH 27 L (28-32) pg MCHC 32 (30-34) % RDW 14.8 (13.2-15.2) % Plt Count 217 (140-440) K/mm3 Lymph % (Auto) 22.9 (13.4-35.0) % [place] % (Auto) 7.1 (0.0-7.3) % Eos % (Auto) 0.8 (0.0-4.3) % Baso % (Auto) 0.2 (0.0-1.8) % Lymph # 2.8 (1.2-5.4) K/mm3 [place] # 0.9 H (0.0-0.8) K/mm3 Eos # 0.1 (0.0-0.4) K/mm3 Baso # 0.0 (0.0-0.1) K/mm3 Seg Neutrophils % 69.0 (40.0-70.0) % Seg Neutrophils # 8.4 H (1.8-7.7) K/mm3 Sodium 142 (137-145) mmol/L Potassium 3.8 (3.6-5.0) mmol/L Chloride 101.6 (98-107) mmol/L Carbon Dioxide 26 (22-30) mmol/L Anion Gap 18 mmol/L BUN 10 (7-17) mg/dL Creatinine 0.7 (0.7-1.2) mg/dL Estimated GFR > 60 ml/min BUN/Creatinine Ratio 14 % Glucose 80 (65-100) mg/dL Calcium 9.5 (8.4-10.2) mg/dL Total Bilirubin 0.60 (0.1-1.2) mg/dL AST 29 (5-40) units/L ALT 33 (7-56) units/L Alkaline Phosphatase 86 (35-129) units/L Total Protein 7.9 (6.3-8.2) g/dL Albumin 4.5 (3.9-5) g/dL Albumin/Globulin Ratio 1.3 % Urine Color Yellow (Yellow) Urine Turbidity Clear (Clear) Urine pH 7.0 (5.0-7.0) Ur Specific [place] 1.017 (1.003-1.030) Urine Protein 100 mg/dl (Negative) mg/dL Urine Glucose (UA) Neg (Negative) mg/dL Urine Ketones Tr (Negative) mg/dL Urine Blood Mod (Negative) Urine Nitrite Neg (Negative) Urine Bilirubin Neg (Negative) Urine Urobilinogen < 2.0 (<2.0) mg/dL Ur Leukocyte Esterase Tr (Negative) Urine WBC (Auto) 16.0 H (0.0-6.0) /HPF Urine RBC (Auto) 61.0 (0.0-6.0) /HPF U Epithel Cells (Auto) 5.0 (0-13.0) /HPF Urine Bacteria (Auto) 1+ (Negative) /HPF Urine Mucus Few /HPF - EKG Data -: EKG Interpreted by Me - EKG Data 07/27/17 18:13 EKG shows normal sinus rhythm incomplete right bundle branch block and probable left atrial enlargement no T-wave inversion right axis deviation - Medical Decision Making Chief medical diagnosis: Generalized pain secondary to ovarian cancer Differential medical diagnosis: Hypokalemia, anemia, hypocalcemia PATIENT IV pain medicine CBC CMP and I'll give patient IV fluids Patient's lab work is unremarkable patient's physical exam is unremarkable. Patient states that she is feeling better and has tolerated oral food in the ED I will send patient home she has a appointment and I couple days with her provider. Discussed plan with patient patient agrees to plan. Additional verbal discharge instructions were given. Critical care attestation.: If time is entered above; I have spent that time in minutes in the direct care of this critically ill patient, excluding procedure time. ED Disposition Clinical Impression: Lightheadedness, Generalized pain Disposition: DC-01 TO HOME OR SELFCARE Is pt being admited?: No Does the pt Need Aspirin: No Condition: Stable Instructions: Ovarian Cancer (ED) Referrals: JACINTA CERON MD [Staff Physician] - 3-5 Days
== END 2017-07-27 19:49 | disposition home or self-care (01) ==
LOC: ED 14:29
DX: R10.84 Generalized abdominal pain (principal); R42 Dizziness and giddiness; K21.9 Gastro-esophageal reflux disease without esophagitis; I10 Essential (primary) hypertension; M19.90 Unspecified osteoarthritis, unspecified site; J45.909 Unspecified asthma, uncomplicated; C56.9 Malignant neoplasm of unspecified ovary; Z88.5 Allergy status to narcotic agent
CPT/HCPCS: 36415; 80053; 81001; 85025; 93005; 93010; 96374; 99284; J3010

== ENCOUNTER 2017-08-01 11:18 | Outpatient (CLI) | payer MEDICAID ==
--- NOTE | 2017-08-01 15:50 | Cat Scan Report ---
FINAL REPORT PROCEDURE: CT ABDOMEN PELVIS W CON TECHNIQUE: Computerized axial tomography of the abdomen and pelvis was performed after the IV injection of iodinated nonionic contrast. HISTORY: OVARIAN TUMOR OF BORDERLINE MALIGNANCY COMPARISON: No prior studies are available for comparison. FINDINGS: Lower Lung shukla: There is minimal dependent atelectasis. Lung bases otherwise appear clear. Upper Abdomen: Liver density appears minimally decreased, suspect there is mild fatty infiltration of the liver. There is a 4 millimeter nonspecific low-density nodule in the right lobe of the liver superiorly. This is too small to characterize. The liver is otherwise unremarkable. Gallbladder is unremarkable. There appears to be a small fold near the fundus of the gallbladder, normal variant. The adrenal glands, the pancreas and the spleen are unremarkable. There appears to be a small hiatal hernia present. Kidneys, Ureters and Urinary bladder: There is a 3-4 millimeter low-density nodule in the renal cortex of the lower 3rd of the left kidney anterior laterally too small to characterize although probably representing a small cyst. The kidneys, the ureters and urinary bladder otherwise are unremarkable. Urinary bladder is only partially filled. Retroperitoneum: The abdominal aorta appears normal Nonspecific subcentimeter lymph nodes are seen in the retroperitoneum. No pathologically enlarged lymph nodes are identified. Bowel: No focal bowel abnormalities are identified. There is no evidence of bowel obstruction ascites or free intraperitoneal gas. Normal-appearing appendix is visualized in the right lower quadrant directed medially. Small umbilical hernia containing adipose tissue is visualized. No herniated loops of bowel are seen. Reproductive organs: Uterus is deviated slightly to the left of midline otherwise is unremarkable. No abnormal adnexal masses are seen on the right or left. There appears to been Essure tubal ligation on the left. Other: No acute bony abnormalities are identified. IMPRESSION: No abnormal adnexal masses are identified. There appears to been Essure tubal ligation on the left. Uterus is unremarkable. The infiltration the liver. Nonspecific 4 millimeter low-density nodule right lobe of the liver as described. Small low-density nodule left kidney as described. No other abnormalities are identified.
== END 2017-08-01 11:19 | disposition home or self-care (01) ==
LOC: CT 11:18
PROVIDERS: ATTEND Obstetrics & Gynecology Gynecologic Oncology
DX: D39.12 Neoplasm of uncertain behavior of left ovary (principal); J98.11 Atelectasis; K42.9 Umbilical hernia without obstruction or gangrene; K76.0 Fatty (change of) liver, not elsewhere classified; N28.89 Other specified disorders of kidney and ureter
CPT/HCPCS: 74177; Q9967

== ENCOUNTER 2019-01-10 09:26 | Outpatient (CLI) | payer MEDICAID ==
--- NOTE | 2019-01-10 10:11 | Mammography Report ---
Bilateral mammogram: No previous studies available. CAD study utilized. Findings: Predominance adipose tissue bilaterally. No mass or microcalcification. Benign calcifications. Normal axilla. Impression: Benign findings. Annual followup recommended. BI-RADS CATEGORY: 2 = Benign ACR BI-RADS MAMMOGRAPHIC CODES: 0 = Needs additional imaging evaluation; 1 = Negative; 2 = Benign; 3 = Probably benign; 4 = Suspicious; 5 = Malignant; 6 = Known biopsy-proven malignancy COMMENT: 1. Dense breast tissue, i.e., adenosis, fibrocystic changes, etc., may obscure an underlying neoplasm. 2. Approximately 10% of cancers are not detected with mammography. 3. A negative mammography report should not delay biopsy if a clinically suspicious mass is present. COMMENT: Patient follow-up letters are generated in [employer].
== END 2019-01-10 09:27 | disposition home or self-care (01) ==
LOC: MAMMO 09:26
PROVIDERS: ATTEND Obstetrics & Gynecology
DX: Z12.31 Encounter for screening mammogram for malignant neoplasm of breast (principal); E78.00 Pure hypercholesterolemia, unspecified; K21.9 Gastro-esophageal reflux disease without esophagitis
CPT/HCPCS: 77067

== ENCOUNTER 2019-02-06 09:36 | Emergency (ER) | payer MEDICAID ==
[2019-02-06 10:01] VITALS: BP 121/61
[2019-02-06] MEDS ORDERED: CLEOCIN PO ONE (10:53)
[2019-02-06] MEDS ORDERED: IBUPROFEN PO ONE (10:53)
--- NOTE | 2019-02-06 11:20 | Emergency Department Report ---
ED ENT HPI - General Chief complaint: Dental/Oral Stated complaint: (L) SIDE TOOTHACHE/SWELLING/PAIN Time Seen by Provider: 02/06/19 10:44 Source: patient Mode of arrival: Ambulatory Limitations: No Limitations - History of Present Illness Initial comments: Patient is a 48-year-old [place] female who is presenting with some left-sided facial swelling. Patient states she has has swelling to the left face for the last 2 days. Patient states she has a broken tooth that occurred approximately a week ago. Patient was started on amoxicillin yesterday but told to come to the emergency department if her face swollen more. Patient stasis type sensatio n to the left face. Pain is a 6 out of 10 in severity she states that no pain medicines were given. Associated Symptoms: toothache. denies: cough, pain with swallowing, sore throat, discharge from ear, rhinorrhea - Related Data Home Medications Medication Instructions Recorded Confirmed Last Taken Famotidine 20 mg PO PRN PRN 05/22/17 02/04/19 05/26/17 Ibuprofen [Motrin 800 MG tab] 800 mg PO PRN PRN 05/22/17 02/04/19 Unknown Albuterol Sulfate [Proventil Hfa] 1 puff IH PRN PRN 02/04/19 02/04/19 Unknown Previous Rx's Medication Instructions Recorded Last Taken Type Clindamycin [Clindamycin CAP] 300 mg PO Q8H #21 cap 02/06/19 Unknown Rx HYDROcodone/APAP 5-325 [[place] 1 each PO Q6HR PRN #14 tablet 02/06/19 Unknown Rx 5/325] Ketorolac [Toradol] 10 mg PO Q6H PRN #12 tablet 02/06/19 Unknown Rx Allergies Allergy/AdvReac Type Severity Reaction Status Date / Time No Known Allergies Allergy Verified 02/06/19 09:37 ED Dental HPI - General Chief complaint: Dental/Oral Stated complaint: (L) SIDE TOOTHACHE/SWELLING/PAIN Time Seen by Provider: 02/06/19 10:44 Source: patient Mode of arrival: Ambulatory Limitations: No Limitations - Related Data Home Medications Medication Instructions Recorded Confirmed Last Taken Famotidine 20 mg PO PRN PRN 05/22/17 02/04/19 05/26/17 Ibuprofen [Motrin 800 MG tab] 800 mg PO PRN PRN 05/22/17 02/04/19 Unknown Albuterol Sulfate [Proventil Hfa] 1 puff IH PRN PRN 02/04/19 02/04/19 Unknown Previous Rx's Medication Instructions Recorded Last Taken Type Clindamycin [Clindamycin CAP] 300 mg PO Q8H #21 cap 02/06/19 Unknown Rx HYDROcodone/APAP 5-325 [[place] 1 each PO Q6HR PRN #14 tablet 02/06/19 Unknown Rx 5/325] Ketorolac [Toradol] 10 mg PO Q6H PRN #12 tablet 02/06/19 Unknown Rx Allergies Allergy/AdvReac Type Severity Reaction Status Date / Time No Known Allergies Allergy Verified 02/06/19 09:37 ED Review of Systems ROS: Stated complaint: (L) SIDE TOOTHACHE/SWELLING/PAIN Other details as noted in HPI Comment: All other systems reviewed and negative ED Past Medical Hx - Past Medical History Hx Hypertension: No Hx Diabetes: Yes (BORDERLINE) Hx GERD: Yes Hx Arthritis: Yes Hx Asthma: Yes (RARE INHALER USE) Hx HIV: No Additional medical history: anemia. anxiety. high cholestrol. bipoplar - Surgical History Hx Open Heart Surgery: No Additional Surgical History: ovarian cyst. ectopic. oophrectomy - Social History Smoking Status: Never Smoker Substance Use Type: None - Medications Home Medications: Home Medications Medication Instructions Recorded Confirmed Last Taken Type Famotidine 20 mg PO PRN PRN 05/22/17 02/04/19 05/26/17 History Ibuprofen [Motrin 800 MG tab] 800 mg PO PRN PRN 05/22/17 02/04/19 Unknown History Albuterol Sulfate [Proventil Hfa] 1 puff IH PRN PRN 02/04/19 02/04/19 Unknown History Clindamycin [Clindamycin CAP] 300 mg PO Q8H #21 cap 02/06/19 Unknown Rx HYDROcodone/APAP 5-325 [[place] 1 each PO Q6HR PRN #14 tablet 02/06/19 Unknown Rx 5/325] Ketorolac [Toradol] 10 mg PO Q6H PRN #12 tablet 02/06/19 Unknown Rx ED Physical Exam - General Limitations: No Limitations General appearance: alert, in no apparent distress - Head Head exam: Present: atraumatic, normocephalic, other (patient with some swelling to the area of the maxillary sinus on the left. She has some mild skin induration.) - Eye Eye exam: Present: normal appearance, PERRL, EOMI - ENT ENT exam: Present: mucous membranes moist - Expanded ENT Exam Expanded 1 - Dental Tenderness - Neck Neck exam: Present: normal inspection - Respiratory Respiratory exam: Present: normal lung sounds bilaterally. Absent: respiratory distress - Cardiovascular Cardiovascular Exam: Present: regular rate, normal rhythm. Absent: systolic murmur, diastolic murmur, rubs, gallop - GI/Abdominal GI/Abdominal exam: Present: soft, normal bowel sounds - Extremities Exam Extremities exam: Present: normal inspection - Back Exam Back exam: Present: normal inspection - Neurological Exam Neurological exam: Present: alert, oriented X3 - Psychiatric Psychiatric exam: Present: normal affect, normal mood - Skin Skin exam: Present: warm, dry, intact, normal color. Absent: rash ED Course Vital Signs 02/06/19 09:59 Temperature 98.8 F Pulse Rate 76 Respiratory 18 Rate Blood Pressure 121/61 O2 Sat by Pulse 99 Oximetry ED Medical Decision Making - Medical Decision Making Patient likely with a dental abscess with facial cellulitis. Patient will be switched to clindamycin. Patient given medications for symptomatic relief . Critical care attestation.: If time is entered above; I have spent that time in minutes in the direct care of this critically ill patient, excluding procedure time. ED Disposition Clinical Impression: Dental abscess, Facial cellulitis Disposition: TO HOME OR SELFCARE Is pt being admited?: No Does the pt Need Aspirin: No Condition: Stable Instructions: Dental Abscess (ED) Time of Disposition: 11:19
== END 2019-02-06 11:35 | disposition home or self-care (01) ==
LOC: ED 09:36
DX: K04.7 Periapical abscess without sinus (principal); L03.211 Cellulitis of face; E11.9 Type 2 diabetes mellitus without complications; K21.9 Gastro-esophageal reflux disease without esophagitis; M19.90 Unspecified osteoarthritis, unspecified site; J45.909 Unspecified asthma, uncomplicated; E78.00 Pure hypercholesterolemia, unspecified; Z79.899 Other long term (current) drug therapy; Z90.721 Acquired absence of ovaries, unilateral
CPT/HCPCS: 99282

== ENCOUNTER 2019-02-13 10:09 | Day surgery (SDC) | payer MEDICAID ==
[2019-02-13] MEDS ORDERED: SUBLIMAZE ONE (10:30)
[2019-02-13] MEDS ORDERED: DIPRIVAN 10 MG/ML IV ONE (10:30)
[2019-02-13] MEDS ORDERED: XYLOCAINE MPF 2% ONE (10:30)
[2019-02-13] MEDS ORDERED: QUELICIN ONE (10:30)
--- NOTE | 2019-02-13 10:52 | Anesthesia Day of Surgery ---
Anesthesia Day of Surgery - Day of Surgery Patient Examined: Yes Patient H&P Reviewed: Yes Patient is NPO: Yes
--- NOTE | 2019-02-13 10:53 | Anesthesia Consultation ---
Anesthesia Consult and Med Hx Date of service: 02/13/19 - Airway Anesthetic Teeth Evaluation: Poor ROM Head & Neck: Adequate Mental/Hyoid Distance: Adequate Mallampati Class: Class II Intubation Access Assessment: Good - Pulmonary Exam CTA: Yes - Cardiac Exam Cardiac Exam: RRR - Pre-Operative Health Status ASA Pre-Surgery Classification: ASA2 - Pulmonary Hx Smoking: Yes (STOPPED 08/2018) Hx Asthma: Yes (RARE INHALER USE) Hx Pneumonia: No Hx Sleep Apnea: No (JOAQUIN PRE SCREEN LOW RISK) - Cardiovascular System Hx Hypertension: No Hx Heart Murmur: Yes - Central Nervous System Hx Back Pain: Yes Hx Psychiatric Problems: Yes (PT STOPPED TAKING MEDS) - Hematic Hx Anemia: Yes (NOT RECENT)
[2019-02-13] MEDS ORDERED: LACTATED RINGERS 1,000 ML IV SCH (11:00)
[2019-02-13] MEDS ORDERED: PEPCID PO NR (11:00)
[2019-02-13] MEDS ORDERED: VERSED IV NR (11:00)
[2019-02-13] MEDS ORDERED: WATER FOR IRRIG STERILE IR ONE (11:50)
--- NOTE | 2019-02-13 11:57 | Post Operative Note ---
Date of procedure: 02/13/19 Pre-op diagnosis: freq voiding Post-op diagnosis: same Findings: min inflam Procedure: cysto bx rpgs Anesthesia: GETA Surgeon: SHALA FUNES Estimated blood loss: none Pathology: list (bladder) Specimen disposition: to lab Condition: stable Disposition: PACU
[2019-02-13] MEDS ORDERED: ZOFRAN ONE (11:58)
[2019-02-13] MEDS ORDERED: DECADRON ONE (11:58)
--- NOTE | 2019-02-13 11:59 | Discharge Summary ---
Short Stay Discharge Plan Activity: other (no straining ) Weight Bearing Status: Full Weight Bearing Diet: regular, low fat Special Instructions: other (inc fluids ) Follow up with: SHALA FUNES MD [Staff Physician] - 14 Days
[2019-02-13] MEDS ORDERED: ANCEF/STERILE WATER 2 GM/20 ML IV NR (12:00)
[2019-02-13] MEDS ORDERED: ZOFRAN IV PRN (12:15)
[2019-02-13] MEDS: DILAUDID IV PRN ×2 (12:15→12:27)
[2019-02-13] MEDS ORDERED: DILAUDID ONE (12:16)
[2019-02-13 12:45] VITALS: BP 110/70
[2019-02-13] MEDS ORDERED: NEO SYNEPHRINE/NS Syringe(OR USE) IV ONE (13:07)
--- NOTE | 2019-02-13 13:14 | Operative Report ---
PREOPERATIVE DIAGNOSES: 1. Irritative voiding symptoms. 2. History of ovarian cancer. POSTOPERATIVE DIAGNOSES: 1. Irritative voiding symptoms. 2. History of ovarian cancer. PROCEDURE: Cystoscopy, biopsy, retrograde. SURGEON: Imtiaz Thompson MD ANESTHESIA: General. FINDINGS: This is a woman who had been treated by [facility]. She now presents for cystoscopy for irritable bladder symptoms. DESCRIPTION OF PROCEDURE: The patient was brought to the operating room and placed on the operating table. Following induction of anesthesia, placed in lithotomy position, prepped and draped in usual sterile fashion. There was minimal inflammation posterior wall of the bladder. Biopsy was obtained. Areas fulgurated. Retrograde showed good filling, good drainage bilaterally. The patient tolerated the procedure well. No significant complication. No [place] catheter was left. The family notified, brought to recovery in stable condition. JOB# [id number] NGUYỄN/JACOB
--- NOTE | 2019-02-14 07:34 | Fluoroscopy Report ---
FLUORO RETROGRADE UROGRAPHY INDICATION: Bladder pain. COMPARISON: None similar. IMAGES/CINE CLIPS: 5 FINDINGS: Procedure performed by the urologist. 10 mL Omnipaque 300 utilized. Initial scrap kettle tender radiograph obtained at 11:48 AM demonstrates an Essure device on the left, similar to 08/01/2017 CT. Nonobstructive bowel gas pattern. Subsequent bilateral retrograde pyelograms demonstrate no hydroureteronephrosis or definite focal suspicious filling defect. Final image also demonstrates partial bladder opacification, incompletely imaged. Biopsy of posterior bladder wall performed with fulguration of the bladder biopsy site. Please also correlate with procedural notes. CONCLUSION: Intraoperative fluoroscopic assistance provided, as described. Thank you for the opportunity to participate in this patient's care.
--- NOTE | 2019-02-14 08:39 | Post Anesthesia Evaluation ---
- Post Anesthesia Evaluation Patient Participated: Yes Airway Patent: Yes Stable Respiratory Function: Yes Nausea/Vomiting: No Temp > 96.8F: Yes Pain Manageable: Yes Adequeate Hydration: Yes Anesthesia Complications: No Block Receding Appropriately: Not Applicable Patient on Ventilator: No
== END 2019-02-13 13:35 | disposition home or self-care (01) ==
LOC: OR 10:09
PROVIDERS: ATTEND Urology
DX: N30.80 Other cystitis without hematuria (principal); F41.9 Anxiety disorder, unspecified; J45.909 Unspecified asthma, uncomplicated; K21.9 Gastro-esophageal reflux disease without esophagitis; M19.90 Unspecified osteoarthritis, unspecified site; M81.0 Age-related osteoporosis without current pathological fracture; F31.9 Bipolar disorder, unspecified; Z98.890 Other specified postprocedural states; Z79.899 Other long term (current) drug therapy; Z90.721 Acquired absence of ovaries, unilateral; Z85.41 Personal history of malignant neoplasm of cervix uteri
CPT/HCPCS: 52204; 74420; 88305; A4217; C1758; J1100; J1170; J2250; J2370; J2405; J2704; J3010; J7120; Q9967; J0330

== ENCOUNTER 2019-06-03 11:00 | Outpatient (CLI) | payer MEDICAID | END 2019-06-03 11:01 | disposition home or self-care (01) | LOC: SLR 11:00 | PROVIDERS: ATTEND Urology | DX: G47.30 Sleep apnea, unspecified (principal); J45.909 Unspecified asthma, uncomplicated; K21.9 Gastro-esophageal reflux disease without esophagitis; M19.90 Unspecified osteoarthritis, unspecified site; F41.9 Anxiety disorder, unspecified; F32.9 Major depressive disorder, single episode, unspecified; F20.9 Schizophrenia, unspecified | CPT/HCPCS: 95810 ==

== ENCOUNTER 2019-06-10 18:15 | Emergency (ER) | payer MEDICAID ==
[2019-06-10] MEDS ORDERED: ASPIRIN 325 MG TAB PO ONE (19:31)
--- NOTE | 2019-06-10 20:16 | XRay Report ---
CHEST 2 VIEWS INDICATION / CLINICAL INFORMATION: Chest Pain. COMPARISON: No prior chest radiograph is available FINDINGS: The lungs are well-inflated and clear. Pulmonary vascularity is normal. Cardiomediastinal silhouette is within normal limits with normal heart size. No pleural fluid or pneumothorax. No acute bony abnor mality. IMPRESSION: 1. No acute abnormality. Signer Name: Tulio Bear MD Signed: 06/10/2019 8:11 PM Workstation Name: [id number]
[2019-06-10 20:27] LABS: Basophils % (Auto) 0.3 % (0.0-1.8); Eosinophils # (Auto) 0.2 K/mm3 (0.0-0.4); Eosinophils % (Auto) 2.1 % (0.0-4.3); Hematocrit 39.2 % (30.3-42.9); Hemoglobin 13.2 gm/dl (10.1-14.3); Lymphocytes # (Auto) 3.1 K/mm3 (1.2-5.4); Lymphocytes % (Auto) 39.4 % (13.4-35.0); Mean Corpuscular HGB Conc 34 % (30-34); Mean Corpuscular Volume 83 fl (79-97); Monocytes # (Auto) 0.8 K/mm3 (0.0-0.8); Monocytes % (Auto) 9.9 % (0.0-7.3); Platelet Count 212 K/mm3 (140-440); Red Blood Count 4.75 M/mm3 (3.65-5.03); Red Cell Distribution Width 14.7 % (13.2-15.2)
[2019-06-10 20:51] LABS: BUN/Creatinine Ratio 11; Blood Urea Nitrogen 12 mg/dL (7-17); Calcium 9.4 mg/dL (8.4-10.2); Hemolysis Index 5
[2019-06-11 00:53] VITALS: BP 112/72
[2019-06-11] MEDS ORDERED: KETOROLAC 30 MG/1 ML INJ IM ONE (00:57)
--- NOTE | 2019-06-11 02:21 | Emergency Department Report ---
ED Chest Pain HPI - General Chief Complaint: Chest Pain Stated Complaint: CHEST PAIN/SOB Time Seen by Provider: 06/11/19 00:07 Source: patient Mode of arrival: Ambulatory Limitations: No Limitations - History of Present Illness Initial Comments: 48-year-old female presents to ED with left posterior shoulder pain for 3 weeks. Patient states pain radiates superiorly and anteriorly to left upper chest. She denies fever. Reports SOB. Denies leg pain and swelling. MD Complaint: chest pain -: week(s) (3) Onset: during rest Pain Location: other (left posterior and anterior pain) Severity: mild Severity scale (0 -10): 4 Quality: sharp Consistency: intermittent Improves With: rest Worsens With: palpation, movement re: dyspnea. denies: nausea, vomting Other Symptoms: denies: cough, fever, leg swelling, palpitations - Related Data Home Medications Medication Instructions Recorded Confirmed Last Taken Famotidine 20 mg PO PRN PRN 05/22/17 02/04/19 02/12/19 16:00 Ibuprofen [Motrin 800 MG tab] 800 mg PO PRN PRN 05/22/17 02/04/19 02/12/19 16:00 Albuterol Sulfate [Proventil Hfa] 1 puff IH PRN PRN 02/04/19 02/04/19 02/12/19 16:00 Previous Rx's Medication Instructions Recorded Last Taken Type Clindamycin [Clindamycin CAP] 300 mg PO Q8H #21 cap 02/06/19 02/12/19 16:00 Rx HYDROcodone/APAP 5-325 [[place] 1 each PO Q6HR PRN #14 tablet 02/06/19 02/12/19 16:00 Rx 5/325] Ketorolac [Toradol] 10 mg PO Q6H PRN #12 tablet 02/06/19 02/12/19 16:00 Rx Naproxen [Naprosyn] 500 mg PO BID #20 tablet 06/11/19 Unknown Rx methOCARBAMOL [Robaxin TAB] 500 mg PO Q8HR PRN #20 tablet 06/11/19 Unknown Rx Allergies Allergy/AdvReac Type Severity Reaction Status Date / Time No Known Allergies Allergy Verified 02/06/19 09:37 Heart Score - HEART Score History: Slightly suspicious EKG: Normal Age: 45-65 Risk factors: No known risk factors Troponin: < normal limit HEART Score: 1 ED Review of Systems ROS: Stated complaint: CHEST PAIN/SOB Other details as noted in HPI Comment: All other systems reviewed and negative Constitutional: denies: chills, fever Respiratory: shortness of breath Cardiovascular: chest pain Musculoskeletal: other (denies leg pain or swelling) ED Past Medical Hx - Past Medical History Previous Medical History?: Yes Hx Hypertension: No Hx Diabetes: Yes (BORDERLINE) Hx GERD: Yes Hx Arthritis: Yes Hx Asthma: Yes (RARE INHALER USE) Hx HIV: No Additional medical history: anemia. anxiety. high cholestrol. bipoplar - Surgical History Past Surgical History?: Yes Hx Open Heart Surgery: No Additional Surgical History: ovarian cyst. ectopic. oophrectomy - Social History Smoking Status: Never Smoker - Medications Home Medications: Home Medications Medication Instructions Recorded Confirmed Last Taken Type Famotidine 20 mg PO PRN PRN 05/22/17 02/04/19 02/12/19 16:00 History Ibuprofen [Motrin 800 MG tab] 800 mg PO PRN PRN 05/22/17 02/04/19 02/12/19 16:00 History Albuterol Sulfate [Proventil Hfa] 1 puff IH PRN PRN 02/04/19 02/04/19 02/12/19 16:00 History Clindamycin [Clindamycin CAP] 300 mg PO Q8H #21 cap 02/06/19 02/12/19 16:00 Rx HYDROcodone/APAP 5-325 [[place] 1 each PO Q6HR PRN #14 tablet 02/06/19 02/12/19 16:00 Rx 5/325] Ketorolac [Toradol] 10 mg PO Q6H PRN #12 tablet 02/06/19 02/12/19 16:00 Rx Naproxen [Naprosyn] 500 mg PO BID #20 tablet 06/11/19 Unknown Rx methOCARBAMOL [Robaxin TAB] 500 mg PO Q8HR PRN #20 tablet 06/11/19 Unknown Rx ED Physical Exam - General Limitations: No Limitations General appearance: alert, in no apparent distress - Head Head exam: Present: atraumatic, normocephalic - Eye Eye exam: Present: normal appearance, PERRL, EOMI - ENT ENT exam: Present: mucous membranes moist - Neck Neck exam: Present: normal inspection - Respiratory Respiratory exam: Present: normal lung sounds bilaterally. Absent: respiratory distress - Cardiovascular Cardiovascular Exam: Present: regular rate, normal rhythm - GI/Abdominal GI/Abdominal exam: Absent: distended - Extremities Exam Extremities exam: Absent: pedal edema, calf tenderness - Back Exam Back exam: Present: other (tenderness at the medial border of the scapula on the left side) - Neurological Exam Neurological exam: Present: alert, oriented X3 - Psychiatric Psychiatric exam: Present: normal affect, normal mood - Skin Skin exam: Present: warm, dry, intact, normal color ED Course Vital Signs 06/11/19 06/11/19 06/11/19 00:49 01:16 01:46 Temperature 98.1 F Pulse Rate 83 Respiratory 18 18 Rate Blood Pressure 112/72 O2 Sat by Pulse 98 Oximetry HUGH score - Hugh Score Age > 65: (0) No Aspirin use within the Past 7 Days: (0) No 3 or more CAD Risk Factors: (1) Yes 2 or more Angina events in past 24 hrs: (0) No Known CAD with more than 50% Stenosis: (0) No Elevated Cardiac Markers: (0) No ST Deviation Greater than 0.5mm: (0) No HUGH Score: 1 ED Medical Decision Making - Lab Data Result diagrams: 06/10/19 20:09 06/10/19 20:09 - EKG Data -: EKG Interpreted by Me EKG shows normal: sinus rhythm, axis, intervals, QRS complexes, ST-T waves Rate: normal - EKG Data When compared to previous EKG there are: no significant change (compared to 07/05 017) Interpretation: no acute changes, other (incomplete RBBB) - Radiology Data Radiology results: report reviewed, image reviewed - Medical Decision Making 48-year-old female presents to ED with left posterior shoulder pain for 3 weeks. Patient states pain radiates superiorly and anteriorly to left upper chest. EKG unremarkable. Chest x-ray is normal. Troponin and d-dimer negative. Likely musculoskeletal pain. Will discharge at this time. Outpatient follow-up advised. Return precautions given. - Differential Diagnosis muscle strain, PE, ACS Critical care attestation.: If time is entered above; I have spent that time in minutes in the direct care of this critically ill patient, excluding procedure time. ED Disposition Clinical Impression: Acute thoracic myofascial strain Disposition: DC-01 TO HOME OR SELFCARE Is pt being admited?: No Condition: Stable Instructions: Muscle Strain (ED) Prescriptions: Naproxen [Naprosyn] 500 mg PO BID #20 tablet methOCARBAMOL [Robaxin TAB] 500 mg PO Q8HR PRN #20 tablet PRN Reason: Muscle Spasm Referrals: PRIMARY CARE, [Primary Care Provider] - 3-5 Days [facility] [Provider Group] - 3-5 Days Time of Disposition: 02:32
== END 2019-06-11 02:50 | disposition home or self-care (01) ==
LOC: ED 18:15
DX: S29.011A Strain of muscle and tendon of front wall of thorax, initial encounter (principal); X58.XXXA Exposure to other specified factors, initial encounter; Y93.89 Activity, other specified; Y92.89 Other specified places as the place of occurrence of the external cause; Y99.8 Other external cause status
CPT/HCPCS: 36415; 71046; 80048; 84484; 84703; 85025; 85379; 93005; 93010; 96372; 99284; J1885

== ENCOUNTER 2019-06-11 11:00 | Outpatient (CLI) | payer MEDICAID | END 2019-06-11 11:01 | disposition home or self-care (01) | LOC: SLR 11:00 | PROVIDERS: ATTEND Urology | DX: G47.33 Obstructive sleep apnea (adult) (pediatric) (principal); K21.9 Gastro-esophageal reflux disease without esophagitis; M19.90 Unspecified osteoarthritis, unspecified site; F20.9 Schizophrenia, unspecified | CPT/HCPCS: 95811 ==